=== PATIENT | female | born 1985 ===

== ENCOUNTER 2021-05-01 23:40 | Inpatient (IN) ==
[2021-05-02] MEDS ORDERED: Naloxone 0.4 MG/ML INJ IVP PRN (03:49)
[2021-05-02] MEDS ORDERED: Melatonin 3 MG TABLET PO PRN (03:49)
[2021-05-02] MEDS ORDERED: Isovue-370 500 ML BOTTLE IVP ONE (04:18)
[2021-05-02] MEDS ORDERED: Aspirin 325 MG TABLET PO ONE (04:30)
[2021-05-02] MEDS ORDERED: Perflutren Lipid Microsphere 1.3 ML in 0.9 % Sodium Chloride 8.7 ML IVP PRN ×2 (04:42→04:43)
[2021-05-02 05:49] LABS: Basophils # 0.1 K/mcL (0.0-0.2); Basophils % 0.8 %; Eosinophils # 0.3 K/mcL (0.0-0.6); Eosinophils % 2.2 %; Estimated Average Glucose 117 mg/dl; Hematocrit 41.2 % (35.3-44.9); Hemoglobin 13.7 g/dL (11.5-15.4); Hemoglobin A1C 5.7 %; Immature Granulocytes % 0.3 % (0-4); Lymphocytes # 4.4 K/mcL (0.6-4.6); Lymphocytes % 36.9 %; Mean Corpuscular HGB Conc 33.3 g/dL (31.6-35.5); Mean Corpuscular Hemoglobin 30.8 pg (28.0-33.3); Mean Corpuscular Volume 92.6 fL (83.0-100.0); Mean Platelet Volume 9.9 fL (9.4-12.4); Monocytes # 1.2 K/mcL (0.0-1.3); Monocytes % 10.4 %; Neutrophils # 5.9 K/mcL (1.6-8.9); Platelet Count 413 K/mcL (140-400); Red Blood Count 4.45 M/mcL (3.82-4.97); Red Cell Distribution Width 14.5 % (11.5-14.5); Segmented Neutrophils % 49.4 %; White Blood Count 11.8 K/mcL (4.3-11.1)
[2021-05-02 06:00] LABS: BUN/Creatinine Ratio 10 (6-26); Blood Urea Nitrogen 6 mg/dL (6-20); Calcium 9.1 mg/dL (8.6-10.3); Carbon Dioxide 22 mEq/L (23-29); Chloride 108 mEq/L (98-107); Cholesterol 151 mg/dL (< 200); Glucose 105 mg/dL (70-105); HDL Cholesterol 51 mg/dL (40-59); LDL Cholesterol,Calculated 65 mg/dL (< 100); Osmolality,Calculated 288 (280-300); Potassium 3.3 mEq/L (3.5-5.1); Sodium 140 mEq/L (136-145); Triglycerides 177 mg/dL (< 150); eGFR For African Americans > 60 (> 60); eGFR For Non-African Americans > 60 (> 60)
[2021-05-02 08:23] LABS: Folate 8.7 ng/mL (3.0-16.0)
[2021-05-02] MEDS: Nicotine 14 MG PATCH.TD24 TD SCH (12:29)
[2021-05-02] MEDS: Acetaminophen 325 MG TABLET PO PRN (20:50)
[2021-05-03 02:08] LABS: Basophils # 0.1 K/mcL (0.0-0.2); Basophils % 0.9 %; Eosinophils # 0.3 K/mcL (0.0-0.6); Eosinophils % 3.1 %; Hematocrit 39.1 % (35.3-44.9); Hemoglobin 13.2 g/dL (11.5-15.4); Immature Granulocytes % 0.2 % (0-4); Lymphocytes # 4.4 K/mcL (0.6-4.6); Lymphocytes % 41.8 %; Mean Corpuscular HGB Conc 33.8 g/dL (31.6-35.5); Mean Corpuscular Hemoglobin 31.4 pg (28.0-33.3); Mean Corpuscular Volume 93.1 fL (83.0-100.0); Mean Platelet Volume 9.4 fL (9.4-12.4); Monocytes # 0.9 K/mcL (0.0-1.3); Monocytes % 8.9 %; Neutrophils # 4.7 K/mcL (1.6-8.9); Platelet Count 374 K/mcL (140-400); Red Cell Distribution Width 14.5 % (11.5-14.5); Segmented Neutrophils % 45.1 %; White Blood Count 10.4 K/mcL (4.3-11.1)
[2021-05-03 02:15] LABS: Prothrombin Time 11.4 Seconds (9.4-12.1)
[2021-05-03 02:26] LABS: BUN/Creatinine Ratio 27 (6-26); Blood Urea Nitrogen 17 mg/dL (6-20); Calcium 8.4 mg/dL (8.6-10.3); Carbon Dioxide 20 mEq/L (23-29); Chloride 108 mEq/L (98-107); Glucose 107 mg/dL (70-105); Magnesium 1.7 mg/dL (1.6-2.6); Osmolality,Calculated 284 (280-300); Phosphorous 4.1 mg/dL (2.7-4.5); Potassium 3.9 mEq/L (3.5-5.1); Sodium 136 mEq/L (136-145); eGFR For African Americans > 60 (> 60); eGFR For Non-African Americans > 60 (> 60)
[2021-05-03] MEDS: Aspirin Enteric Coated 81 MG Tablet PO SCH (08:41)
[2021-05-03] MEDS: Acetaminophen 325 MG TABLET PO PRN (08:41)
[2021-05-03 09:56] LABS: Bilirubin,Urine Negative (Negative); Blood,Urine Negative (Negative); Clarity,Urine Clear (Clear); Color,Urine Light-Yellow (Yellow); Glucose,Urine (UA) Normal (Normal); Ketones,Urine Negative (Negative); Leukocyte Esterase,Urine Negative (Negative); Nitrite,Urine Negative (Negative); Protein,Urine Negative (Neg-Trace); Specific Gravity,Urine 1.021 (1.010-1.025); Urobilinogen,Urine Normal (Normal)
[2021-05-03] MEDS: Nicotine 14 MG PATCH.TD24 TD SCH (10:36)
[2021-05-03] MEDS: lisinopriL 5 MG TABLET PO SCH (15:26)
[2021-05-03] MEDS: *HR* Heparin 5,000 UNIT/ML VIAL SQ SCH (16:40)
[2021-05-03] MEDS: Ondansetron 4 MG/2 ML VIAL IVP PRN (21:13)
[2021-05-04] MEDS: Nicotine 14 MG PATCH.TD24 TD SCH ×2 (00:02→19:39)
[2021-05-04 03:07] LABS: Hematocrit 38.6 % (35.3-44.9); Hemoglobin 12.7 g/dL (11.5-15.4); Mean Corpuscular HGB Conc 32.9 g/dL (31.6-35.5); Mean Corpuscular Hemoglobin 31.1 pg (28.0-33.3); Mean Corpuscular Volume 94.4 fL (83.0-100.0); Mean Platelet Volume 9.7 fL (9.4-12.4); Platelet Count 383 K/mcL (140-400); Red Blood Count 4.09 M/mcL (3.82-4.97); Red Cell Distribution Width 14.5 % (11.5-14.5); White Blood Count 11.6 K/mcL (4.3-11.1)
[2021-05-04 03:30] LABS: BUN/Creatinine Ratio 20 (6-26); Blood Urea Nitrogen 16 mg/dL (6-20); Calcium 8.7 mg/dL (8.6-10.3); Carbon Dioxide 23 mEq/L (23-29); Chloride 107 mEq/L (98-107); Glucose 106 mg/dL (70-105); Osmolality,Calculated 288 (280-300); Potassium 3.9 mEq/L (3.5-5.1); Sodium 138 mEq/L (136-145); eGFR For African Americans > 60 (> 60); eGFR For Non-African Americans > 60 (> 60)
[2021-05-04] MEDS: Ondansetron 4 MG/2 ML VIAL IVP PRN (06:01)
[2021-05-04] MEDS: *HR* Heparin 5,000 UNIT/ML VIAL SQ SCH ×2 (06:01→17:32)
[2021-05-04] MEDS: lisinopriL 5 MG TABLET PO SCH (09:56)
[2021-05-04] MEDS: Aspirin Enteric Coated 81 MG Tablet PO SCH (09:56)
[2021-05-04] MEDS: Acetaminophen 325 MG TABLET PO PRN ×2 (10:00→17:31)
[2021-05-05 02:13] LABS: Hematocrit 38.5 % (35.3-44.9); Hemoglobin 12.5 g/dL (11.5-15.4); Mean Corpuscular HGB Conc 32.5 g/dL (31.6-35.5); Mean Corpuscular Hemoglobin 30.6 pg (28.0-33.3); Mean Corpuscular Volume 94.4 fL (83.0-100.0); Mean Platelet Volume 9.7 fL (9.4-12.4); Platelet Count 374 K/mcL (140-400); Red Blood Count 4.08 M/mcL (3.82-4.97); Red Cell Distribution Width 14.7 % (11.5-14.5); White Blood Count 12.2 K/mcL (4.3-11.1)
[2021-05-05 02:35] LABS: BUN/Creatinine Ratio 24 (6-26); Blood Urea Nitrogen 21 mg/dL (6-20); Calcium 8.2 mg/dL (8.6-10.3); Carbon Dioxide 23 mEq/L (23-29); Chloride 110 mEq/L (98-107); Glucose 104 mg/dL (70-105); Osmolality,Calculated 289 (280-300); Potassium 3.8 mEq/L (3.5-5.1); Sodium 138 mEq/L (136-145); eGFR For African Americans > 60 (> 60); eGFR For Non-African Americans > 60 (> 60)
[2021-05-05] MEDS: *HR* Heparin 5,000 UNIT/ML VIAL SQ SCH (05:07)
[2021-05-05 07:01] VITALS: O2SAT 99
[2021-05-05] MEDS: Aspirin Enteric Coated 81 MG Tablet PO SCH (09:06)
[2021-05-05] MEDS: lisinopriL 5 MG TABLET PO SCH (09:06)
[2021-05-05 15:08] VITALS: BP 105/63; PULSE 67; TEMP 98
[2021-05-06 08:58] LABS: ANA IgG by ELISA NONE DETECTED (None Detected)
[2021-05-06 15:25] LABS: FACV Specimen WHOLE BLOOD
[2021-05-06 16:23] LABS: APTT (LE Anticoag) 38 sec (32-48); Diluted Russell Viper Venom 30 sec (33-44); PT (LE-Anticoag) 12.4 sec (12.0-15.5)
[2021-05-07 08:18] LABS: Fac V Leiden R506Q Mut Result NEGATIVE
[2021-05-09 10:20] LABS: Prothrombin Antibody, IgG 2 Units (0-19)
== END 2021-05-05 16:33 | disposition left against medical advice (07) | DRG 65 ==
LOC: 3NENU → SUATTDRO 05-02 02:49 → 3BNU 05-03 15:16
PROVIDERS: ADMIT Internal Medicine; ATTEND Internal Medicine